=== PATIENT | male | born 1995 | race Two or more races ===

== ENCOUNTER 2024-11-13 08:53 | Emergency (ER) | payer BC, OTHER ==
[~2024-11-13] VITALS: Ht 167.6 cm; Wt 71.7 kg
[2024-11-13] MEDS: FLUORESCEIN SOD OPTH TEST STRIP OP ONE (09:26)
[2024-11-13] MEDS: TETRACAINE HCL 0.5% OPTH(EYE) SOLN 4ML LEFTEYE ONE ×2 (09:26→12:26)
--- NOTE | 2024-11-13 09:34 | ED.PDOC ---
Eye-HPI HPI Comments A 29 YEAR OLD MALE PRESENTS TO THE ED WITH COMPLAINT OF POSSIBLE FOREIGN BODY OF LEFT EYE. PATIENT STATES HE WAS GRINDING METAL YESTERDAY AND THINKS A SMALL PIECE GOT INTO HIS LEFT EYE. PATIENT REPORTS HE IS NOW EXPERIENCING LEFT EYE REDNESS AND IRRITATION AND WOULD LIKE TO HAVE HIS LEFT EYE EVALUATED FOR A POSSIBLE FOREIGN BODY. PATIENT DENIES VISION CHANGES, FEVER, CHILLS, SHORTNESS OF BREATH, CHEST PAIN, ABDOMINAL PAIN, NAUSEA, VOMITING, HEADACHE, OR OTHER COMPLAINTS. NO OTHER SYMPTOMS OR MODIFYING FACTORS AT THIS TIME. PATIENT IS ALERT, ORIENTED X 4, AND HAS STEADY GAIT. Chief Complaint: Eye Problem Reviewed Notes: Nurses Notes, Medications, Allergies Allergies: Coded Allergies: NO KNOWN ALLERGIES (Unverified , 11/13/24) Information Source: Patient Mode of Arrival: Ambulatory Timing: Days Duration: Since onset, Days Prehospital treatment: None Quality: Pain, Red Eye Location: Left Lids: Normal Conjunctiva: Normal Cornea: Left eye, Abrasion, Foreign Body Pupils: Normal EOM: Normal Fundus: Normal Slit lamp exam: Left eye, Corneal abrasion, Foreign Body, Flourescein stain:, Positive Anterior chamber: Normal Mouth: Normal ENT Ear Exam: Normal, Normal, Normal Nose: Normal Sinuses: Normal Oropharynx: Normal Onset: Spontaneous Throat Exposed to: None History of: None Last Tetanus: Unknown Modifying factors: Nothing Associated signs and symptoms: None Past Medical History PAST MEDICAL HISTORY: Denies Surgical History: Denies all surgeries Family History Family History: Reviewed,noncontributory to illness Social History Smoker: Non-Smoker Alcohol: Denies ETOH Use Drugs: Denies Drug Use Lives In: Home Constitutional: denies: chills, diaphoresis, fatigue, fever, malaise, sweats, weakness, others EENTM: reports: eye pain (LEFT EYE PAIN/IRRITATION), eye redness (LEFT EYE REDNESS), others (POSSIBLE FOREIGN BODY OF LEFT EYE); denies: blurred vision, double vision, ear bleeding, ear discharge, ear drainage, ear pain, ear ringing, hearing loss, mouth pain, mouth swelling, nasal discharge, nose bleeding, nose congestion, nose pain, photophobia, tearing, throat pain, throat swelling, voice changes Respiratory: denies: cough, hemoptysis, orthopnea, SOB at rest, shortness of br eath, SOB with excertion, stridor, wheezing, others Cardiovascular: denies: chest pain, dizzy spells, diaphoresis, Dyspnea on exertion, edema, irregular heart beat, left arm pain, lightheadedness, palpitations, PND, syncope, others Gastrointestinal: denies: abdomen distended, abdominal pain, blood streaked bowels, constipated, diarrhea, dysphagia, difficulty swallowing, hematemesis, melena, nausea, poor appetite, poor fluid intake, rectal bleeding, rectal pain, vomiting, others Genitourinary: denies: burning, dysuria, flank pain, frequency, hematuria, incontinence, penile discharge, penile sore, pain, testicle pain, testicle swelling, urgency, others Neurological: denies: dizziness, fainting, headache, left sided numbness, left sided weakness, numbness, paresthesia, pre-existing deficit, right sided numbness, right sided weakness, seizure, speech problems, tingling, tremors, weakness, others Musculoskeletal: denies: back pain, gout, joint pain, joint swelling, muscle pain, muscle stiffness, neck pain, others Integumetry: denies: bruises, change in color, change in hair/nails, dryness, laceration, lesions, lumps, rash, wounds, others Allergic/Immunocompromised: denies: Difficulty Healing, Frequent Infections, Hives, Itching, others Hematologic/Lymphatic: denies: anemia, blood clots, easy bleeding, easy bruising, swollen glands, others Endocrine: denies: excessive hunger, excessive sweating, excessive thirst, excessive urination, flushing, intolerance to cold, intolerance to heat, unexplained weight gain, unexplained weight loss, others Psychiatric: denies: anxiety, bipolar disorder, depression, hopeless, panic disorder, schizophrenia, sleepless, suicidal, others All Other Systems: Reviewed and Negative Was a procedure done? Was a procedure done?: Yes Sedation Sedation?: No Foreign Body Removal Foreign body in: Eye (LEFT EYE) Anesthetic: Other (TETRACAINE) Prep: Prep, Saline, Irrigation Procedure: Identified (+FB OF LEFT EYE, +CORNEAL ABRASION OF LEFT EYE), Removed Informed consent obtained: No Risks/benefits/alt described: Yes EENT DIFF Eye: Conjunctivitis, Allergic, Bacterial, Viral, Corneal Abrasion, Foreign Body-Conjunctiva, Foreign Body-Corneal, Foreign Body-Lid, Hordeolum (stye) Ear: N/A Nose: N/A Mouth: N/A Sore Throat: N/A X-Ray, Labs, Meds, VS Vital Signs Date Time Temp Pulse Resp B/P (MAP) Pulse Ox O2 Delivery O2 Flow Rate FiO2 11/13/24 09:26 97.6 81 16 134/92 (106) 97 97.6 11/13/24 09:26 81 16 97 Room Air 11/13/24 08:53 97.6 81 16 134/92 (106) 97 X-Ray, Labs, Meds, VS Comment EXTERNAL MEDICAL RECORDS REVIEWED: [NONE] INDEPENDENT HISTORIANS: [NONE] SOCIAL DETERMINANTS OF HEALTH: [NONE] LABS ORDERED: NONE REVIEWED AND INTERPRETED RESULTS: NONE IMAGING ORDERED: NONE TREATMENTS ORDERED: PROCEDURES PERFORMED: FOREIGN BODY REMOVAL OF LEFT EYE CRITICAL CARE TIME: NONE I HAVE DISCUSSED THE PATIENT WITH THE ATTENDING PHYSICIAN DR. ALMAZAN AND HE AGREES WITH THE PATIENT'S PLAN OF CARE AND DISPOSITION. BASED ON HISTORY OF PRESENT ILLNESS, AND PHYSICAL EXAM, PATIENT WILL BE DISCHARGED HOME. DISCUSSED PLAN FOR DISCHARGE HOME WITH RX []. MEDICATION WARNINGS GIVEN. SHARED DECISION MAKING: PATIENT INSTRUCTED TO FOLLOW UP WITH PRIMARY CARE PROVIDER IN 1-2 DAYS FOR RE-EVALUATION OF SYMPTOMS. PATIENT VERBALIZES UN DERSTANDING TO RETURN TO ED FOR NEW OR WORSENING SYMPTOMS OR IF FOLLOW UP WITH PCP CANNOT BE OBTAINED. PATIENT FEELS COMFORTABLE GOING HOME AT THIS TIME. ALL QUESTIONS ADDRESSED AT TIME OF DISCHARGE. Reevaluation 1ST: Improved Patient Education/Counseling: Diagnosis, Treatment, Need For Follow Up Family Education/Counseling: Diagnosis, Treatment, Need For Follow Up Departure 1 Departure Disposition: 01 HOME / SELF CARE / HOMELESS Condition: Stable Additional Instructions: FOLLOW-UP WITH PCP IN 1 TO 2 DAYS. TAKE MEDICATIONS PRESCRIBED. RETURN TO ED FOR ANY NEW OR WORSENING SYMPTOMS. Discharged With: Self Critical Care Note Critical Care Time?: No Stability Stability form required: No I personally scribed for DAO GARCIA ([email or web address]) on 11/13/24 at 09:34. Elec tronically submitted by Boom Cho ([email or web address]). I personally scribed for DAO GARCIA ([email or web address]) on 11/13/24 at 09:39. Elect ronically submitted by Boom Cho ([email or web address]). I personally scribed for DAO GARCIA ([email or web address]) on 11/13/24 at 09:49. Electr onically submitted by Boom Cho ([email or web address]). DAO GARCIA Nov 13, 2024 09:34
[2024-11-13] MEDS: FLUORESCEIN SOD OPTH TEST STRIP ONE (12:25)
[2024-11-13] MEDS: BACITRACIN-POLYMYXIN B OPTH(EYE) OINT 3.5GM OP ONE (12:26)
--- NOTE | 2024-11-13 12:28 | ED.PDOC ---
Eye-HPI HPI Comments 29 year old male presents to the ED with a chief complaint of LT eye pain onset yesterday. Patient states he was shaving metal when he felt a small piece inside LT eye. Patient woke up this morning noticed LT eye was teary, with discharge, red and painful. Patient denies any PMH. No other symptoms or modifying factors present at this time. Chief Complaint: Eye Problem Time Seen by MD: 11:47 Reviewed Notes: Medications, Allergies Allergies: Coded Allergies: NO KNOWN ALLERGIES (Unverified , 11/13/24) Information Source: Patient Mode of Arrival: Ambulatory Timing: Days Duration: Since onset Prehospital treatment: None Quality: Pain, Red, FB sensation Eye Location: Left Mouth: Normal ENT Ear Exam: Normal Nose: Normal Sinuses: Normal Oropharynx: Normal Onset: FB Exposure Throat Exposed to: None Eye Context Recent: Welding History of: None Associated signs and symptoms: Discharge, Tearing Past Medical History PAST MEDICAL HISTORY: Denies Surgical History: Denies all surgeries Family History Family History: Reviewed,noncontributory to illness Social History Smoker: Non-Smoker Alcohol: Denies ETOH Use Drugs: Denies Drug Use Lives In: Home Constitutional: denies: chills, diaphoresis, fatigue, fever, malaise, sweats, weakness, others EENTM: reports: eye pain, eye redness, others (foreign body in eye); denies: blurred vision, double vision, ear bleeding, ear discharge, ear drainage, ear pain, ear ringing, hearing loss, mouth pain, mouth swelling, nasal discharge, nose bleeding, nose congestion, nose pain, photophobia, tearing, throat pain, throat swelling, voice changes Respiratory: denies: cough, hemoptysis, orthopnea, SOB at rest, shortness of breath, SOB with excertion, stridor, wheezing, others Cardiovascular: denies: chest pain, dizzy spells, diaphoresis, Dyspnea on exertion, edema, irregular heart beat, left arm pain, lightheadedness, palpitations, PND, syncope, others Gastrointestinal: denies: abdomen distended, abdominal pain, blood streaked bowels, constipated, diarrhea, dysphagia, difficulty swallowing, hematemesis, melena, nausea, poor appetite, poor fluid intake, rectal bleeding, rectal pain, vomiting, others Genitourinary: denies: burning, dysuria, flank pain, frequency, hematuria, incontinence, penile discharge, penile sore, pain, testicle pain, testicle swelling, urgency, others Neurological: denies: dizziness, fainting, headache, left sided numbness, left sided weakness, numbness, paresthesia, pre-existing deficit, right sided numbness, right sided weakness, seizure, speech problems, tingling, tremors, weakness, others Musculoskeletal: denies: back pain, gout, joint pain, joint swelling, muscle pain, muscle stiffness, neck pain, others Integumetry: denies: bruises, change in color, change in hair/nails, dryness, laceration, lesions, lumps, rash, wounds, others Allergic/Immunocompromised: denies: Difficulty Healing, Frequent Infections, Hives, Itching, others Hematologic/Lymphatic: denies: anemia, blood clots, easy bleeding, easy bruising, swollen glands, others Endocrine: denies: excessive hunger, excessive sweating, excessive thirst, excessive urination, flushing, intolerance to cold, intolerance to heat, unexplained weight gain, unexplained weight loss, others Psychiatric: denies: anxiety, bipolar disorder, depression, hopeless, panic disorder, schizophrenia, sleepless, suicidal, others All Other Systems: Reviewed and Negative Physical Exam General Appearance: Mild Distress HEENT: Cornea (L), Normal ENT Inspection, PERRL/EOMI, Other (Abrasion noted the tachycardia on see any foreign body after multiple researchThe upper lid is everted and cleaned the lower lid is cleaned the vision is normal but the patient still feel little something in the eye ) Neck: Full Range of Motion, Non-Tender, Normal, Normal Inspection Respiratory: Chest Non-Tender, Lungs Clear, No Accessory Muscle Use, No Respiratory Distress, Normal Breath Sounds Cardiovascular: No Edema, No JVD, No Murmur, No Gallop, Normal Peripheral Pulses, Regular Rate/Rhythm Breast Exam: Deferred Gastrointestinal: No Organomegaly, Non Tender, No Pulsatile Mass, Normal Bowel Sounds, Soft Genitalia: Deferred Pelvic: Deferred Rectal: Deferred Extremities: No calf tenderness, Normal capillary refill, Normal inspection, Normal range of motion, Non-tender, No pedal edema Neurologic: Alert, consultant dietitian II-XII nml as Tested, No Motor Deficits, Normal Affect, Normal Mood, No Sensory Deficits Cerebellar Function: Normal Reflexes: Normal Skin: Dry, Normal Color, Warm Peripheral Pulses: 1+ carotid (R), 1+ carotid (L) Lymphatic: No Adenopathy Was a procedure done? Was a procedure done?: Yes Sedation Sedation?: No Other Procedure Procedure Possible corneal abrasion Left eye evaluation upper lid everted lower lid cleaned upper lid the small foreign body removed Cornea seems to have a small tiny abrasion but I do not see any foreign body at this time CT of the orbit sent to rule out foreign body intra-ocular negative Patient will be discharged home with a patch and bacitracin ointment If he is not better after a day or two he needs to come back for further evaluation Informed consent obtained: No Risks, benefits, and alternati: No EENT DIFF Eye: Conjunctivitis, Corneal Abrasion, Foreign Body-Conjunctiva, Foreign Body- Corneal, Foreign Body-Intraocular, Foreign Body-Lid Ear: N/A Nose: N/A Mouth: N/A Sore Throat: N/A X-Ray, Labs, Meds, VS Vital Signs Date Time Temp Pulse Resp B/P (MAP) Pulse Ox O2 Delivery O2 Flow Rate FiO2 11/13/24 14:50 98.9 85 16 119/88 (98) 98 98.9 11/13/24 11:54 99.6 87 16 137/86 (103) 97 99.6 11/13/24 09:26 97.6 81 16 134/92 (106) 97 97.6 11/13/24 09:26 81 16 97 Room Air 11/13/24 08:53 97.6 81 16 134/92 (106) 97 [place] [address] Ph: [phone] DIAGNOSTIC IMAGING Diagnostic Imaging Report : [id number] Signed PATIENT: KIKO GREGG CACCT: [id number] UNIT: [id number] : 1995 LOC: ER ROOM / BED: / AGE / SEX: 29 / M ADM STATUS: REG ER SERVICE [id number] ORDERING PHYSICIAN: DONNA ALMAZAN MD PROCEDURE(s): OB1CT - ORBITS WO CONTRAST REASON: Possible foreign body metal intra-ocular ORDER NUMBER(s): [id number], ACCESSION NUMBER(s): [id number] CT ORBITS WITHOUT CONTRAST CLINICAL HISTORY: Possible foreign body metal intra-ocular TECHNIQUE: [Technique] Multiple contiguous axial images of the orbits without contrast were obtained. These images were reconstructed to generate coronal and sagittal reformats. Radiation Dose Information: CT Dose: CTDI volume is 65 mGy. Dose-length product is 8 79 mGy*cm Comparison: None FINDINGS: Evaluation of the orbits is limited without intravenous contrast. The bilateral globes appear within normal limits without preseptal soft tissue swelling or edema. There is no evidence of a radiopaque foreign body. The bilateral optic nerve/sheath complexes are symmetric in size. The extraocular muscles also appear symmetric in size and within normal limits. There is no evidence of an intraconal or extraconal mass. The lacrimal glands appear within normal limits. The orbital solitario are intact. The visualized paranasal sinuses are clear. IMPRESSION: 1. Unremarkable noncontrast CT orbits. There is no evidence of a radiopaque foreign body. HS:Y ATED BY: RAHAT FRASER MD DICTATED DATE/TIME: 11/13/241410 SIGNED BY: RAHAT FRASER MD SIGNED DATE/TIME: 11/13/241410 CC: X-Ray, Labs, Meds, VS Comment Course in the emergency department eventful patient came in complaining of left eye pain with possible foreign body possibly metal The CT of the orbit negative for foreign body Upper eyelid and lower eyelid cleaned Cornea evaluated carefully can not see any foreign body at this time maybe a tin ea little abrasion Patient will be discharged with patch Need to follow up with the his see be and or physician intensivist If any further problem patient came back for follow up Time of 1ST Reevaluation: 12:17 Reevaluation 1ST: Unchanged Patient Education/Counseling: Diagnosis, Treatment, Prognosis Family Education/Counseling: No Family Present Additional Information The following tests were ordered, and results were reviewed by me: CT ORBITS WITHOUT CONTRAST I reviewed and agreed with the following test results read by other providers: CT ORBITS WITHOUT CONTRAST I discussed treatment and results with medical personnel and: patient Departure 1 Departure Time of Disposition: 15:00 Impression: Primary Impression: Foreign body accidentally entering eye and adnexa Additional Impression: Corneal abrasion Qualified Codes: S05.02XA - Injury of conjunctiva and corneal abrasion without foreign body, left eye, initial encounter Disposition: HOME / SELF CARE / HOMELESS Condition: Stable Additional Instructions: Patient treated with the bacitracin ophthalmic FOLLOW-UP WITH PCP IN 1 TO 2 DAYS. TAKE MEDICATIONS PRESCRIBED. RETURN TO ED FOR ANY NEW OR WORSENING SYMPTOMS. Discharged With: Self Critical Care Note Critical Care Time?: No Stability Stability form required: No Heart Score Heart Score: Heart Score Response (Comments) Value History N/A 0 EKG N/A 0 Age <45 0 Risk Factors No known risk factors 0 Troponin N/A 0 Total 0 I personally scribed for DONNA ALMAZAN MD ([email or web address]) on 11/13/24 at 12:28. Electronically submitted by Jocelyne Sexton ([email or web address]). I personally scribed for DONNA ALMAZAN MD ([email or web address]) on 11/13/24 at 14:32. Electronically submitted by Jocelyne Sexton ([email or web address]). DONNA ALMAZAN MD Nov 13, 2024 12:28
--- NOTE | 2024-11-13 14:14 | DVH ---
CT ORBITS WITHOUT CONTRAST CLINICAL HISTORY: Possible foreign body metal intra-ocular TECHNIQUE: [Technique] Multiple contiguous axial images of the orbits without contrast were obtained. These images were fanny nstructed to generate coronal and sagittal reformats. Radiation Dose Information: CT Dose: CTDI volume is 65 mGy. Dose-length product is 8 79 mGy*cm Comparison: None FINDINGS: Evaluation of the orbits is limited without intravenous contrast. The bilateral globes appear within normal limits without preseptal soft tissue swelling or edema. There is no evidence of a radiopaque f oreign body. The bilateral optic nerve/sheath complexes are symmetric in size. The extraocular muscle s also appear symmetric in size and within normal limits. There is no evidence of an intraconal or ex traconal mass. The lacrimal glands appear within normal limits. The orbital solitario are intact. The vi sualized paranasal sinuses are clear. IMPRESSION: 1. Unremarkable noncontrast CT orbits. There is no evidence of a radiopaque foreign body. HS:Y
[2024-11-13 14:50] VITALS: BP 119/88; PULSE 85; RESP 16; TEMP 98.9; O2SAT 98
== END 2024-11-13 15:09 | disposition home or self-care (01) ==
LOC: ER 08:53
DX: T15.90XA Foreign body on external eye, part unspecified, unspecified eye, initial encounter (principal); S05.02XA Injury of conjunctiva and corneal abrasion without foreign body, left eye, initial encounter; W44.8XXA Other foreign body entering into or through a natural orifice, initial encounter; Y93.89 Activity, other specified; Y92.89 Other specified places as the place of occurrence of the external cause; Y99.8 Other external cause status
CPT/HCPCS: 65220; 70480

== ENCOUNTER 2025-07-01 07:17 | Emergency (ER) | payer BC ==
[~2025-07-01] VITALS: Ht 167.6 cm; Wt 73.9 kg
[2025-07-01 08:12] VITALS: BP 117/79; TEMP 98.4; O2SAT 97
--- NOTE | 2025-07-01 08:19 | ED.PDOC ---
SOB-HPI HPI Comments A 30 YEAR OLD MALE PRESENTS TO THE ED WITH COMPLAINT OF MILD COUGH AND SORE THROAT. PATIENT STATES HE WAS RECENTLY EXPOSED TO COVID-19 AND HAS BEEN EXPERIENCING A SORE THROAT, MILD COUGH, CONGESTION, AND BODY ACHES A RESULT FOR THE PAST 2 DAYS. PATIENT IS REQUESTING A COVID-19 TEST HERE IN THE ED TODAY. PATIENT DENIES FEVER, CHILLS, SHORTNESS OF BREATH, CHEST PAIN, ABDOMINAL PAIN, NAUSEA, VOMITING, HEADACHE, OR OTHER COMPLAINTS. NO OTHER SYMPTOMS OR MODIFYING FACTORS AT THIS TIME. PATIENT IS ALERT, ORIENTED X 4, AND HAS STEADY GAIT. Chief Complaint: Cough Time Seen by MD: 07:20 Reviewed notes: Nurses Notes, Medications, Allergies Information Source: Patient Mode of Arrival: Ambulatory Severity: Moderate Timing: Days Duration: Since onset, Days Context: Spontaneous Onset PE Risk Factors: None History of: None Prehospital treatment: None Modifying Factors: Nothing Associated Signs and Symptoms: Cough, Nasal Congestion, Sore Throat If cough with SOB: Productive Past Medical History PAST MEDICAL HISTORY: Denies Surgical History: Denies all surgeries Family History Family History: Reviewed,noncontributory to illness Social History Smoker: Non-Smoker Alcohol: Denies ETOH Use Drugs: Denies Drug Use Lives In: Home Constitutional: denies: chills, diaphoresis, fatigue, fever, malaise, sweats, weakness, others EENTM: reports: nose congestion, throat pain, throat swelling; denies: blurred vision, double vision, ear bleeding, ear discharge, ear drainage, ear pain, ear ringing, eye pain, eye redness, hearing loss, mouth pain, mouth swelling, nasal discharge, nose bleeding, nose pain, photophobia, tearing, voice changes, others Respiratory: reports: cough; denies: hemoptysis, orthopnea, SOB at rest, shortness of breath, SOB with excertion, stridor, wheezing, others Cardiovascular: denies: chest pain, dizzy spells, diaphoresis, Dyspnea on exertion, edema, irregular heart beat, left arm pain, lightheadedness, palpitations, PND, syncope, others Gastrointestinal: denies: abdomen distended, abdominal pain, blood streaked bowels, constipated, diarrhea, dysphagia, difficulty swallowing, hematemesis, melena, nausea, poor appetite, poor fluid intake, rectal bleeding, rectal pain, vomiting, others Genitourinary: denies: burning, dysuria, flank pain, frequency, hematuria, incontinence, penile discharge, penile sore, pain, testicle pain, testicle swelling, urgency, others Neurological: denies: dizziness, fainting, headache, left sided numbness, left sided weakness, numbness, paresthesia, pre-existing deficit, right sided numbness, right sided weakness, seizure, speech problems, tingling, tremors, weakness, others Musculoskeletal: reports: muscle pain; denies: back pain, gout, joint pain, joint swelling, muscle stiffness, neck pain, others Integumetry: denies: bruises, change in color, change in hair/nails, dryness, laceration, lesions, lumps, rash, wounds, others Allergic/Immunocompromised: denies: Difficulty Healing, Frequent Infections, Hives, Itching, others Hematologic/Lymphatic: denies: anemia, blood clots, easy bleeding, easy bru ising, swollen glands, others Endocrine: denies: excessive hunger, excessive sweating, excessive thirst, e xcessive urination, flushing, intolerance to cold, intolerance to heat, unexplained weight gain, unexplained weight loss, others Psychiatric: denies: anxiety, bipolar disorder, depression, hopeless, panic disorder, schizophrenia, sleepless, suicidal, others All Other Systems: Reviewed and Negative Physical Exam General Appearance: No Apparent Distress, Normal HEENT: PERRL/EOMI, Pharyngeal Erythema (TONSILLAR SWELLING, NO EXUDATES. ), TMs Normal Neck: Full Range of Motion, Non-Tender, Normal, Normal Inspection Respiratory: Chest Non-Tender, Lungs Clear, No Accessory Muscle Use, No Respiratory Distress, Normal Breath Sounds Cardiovascular: No Edema, No JVD, No Murmur, No Gallop, Normal Peripheral Pulses, Regular Rate/Rhythm Breast Exam: Deferred Gastrointestinal: No Organomegaly, Non Tender, No Pulsatile Mass, Normal Bowel Sounds, Soft Genitalia: Deferred Pelvic: Deferred Rectal: Deferred Extremities: No calf tenderness, Normal capillary refill, Normal inspection, Normal range of motion, Non-tender, No pedal edema Musculoskeletal : Apperance: Normal Neurologic: Alert, 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 Was a procedure done?: No Differential Dx Differential Diagnosis: Bronchitis, Sinusitis, Allergic Rhinitis, Otitis Media, Pharyngitis, URI Comments COVID-19 X-Ray, Labs, Meds, VS Vital Signs Date Time Temp Pulse Resp B/P (MAP) Pulse Ox O2 Delivery O2 Flow Rate FiO2 07/01/25 08:24 83 16 Room Air 0 07/01/25 08:12 98.4 83 16 117/79 (92) 97 98.4 07/01/25 07:18 98.6 87 20 127/83 97 98.6 Lab Test 07/01/25 08:30 Range/Units SARS-CoV-2 Antigen (Rapid) Positive *A NEGATIVE Group A Streptococcus Rapid Negative X-Ray, Labs, Meds, VS Comment EXTERNAL MEDICAL RECORDS REVIEWED: [NONE] INDEPENDENT HISTORIANS: [NONE] SOCIAL DETERMINANTS OF HEALTH: [NONE] LABS ORDERED: STREP A RAPID, COVID-19 ANTIGEN REVIEWED AND INTERPRETED RESULTS: COVID-19 POSITIVE IMAGING ORDERED: NONE TREATMENTS ORDERED: NONE PROCEDURES PERFORMED: NONE CRITICAL CARE TIME: NONE I HAVE DISCUSSED THE PATIENT WITH THE ATTENDING PHYSICIAN, DR. AC HE AGREES WITH THE PATIENT'S PLAN OF CARE AND DISPOSITION. BASED ON HISTORY OF PRESENT ILLNESS, AND PHYSICAL EXAM, PATIENT WILL BE DISCHARGED HOME. DISCUSSED PLAN FOR DISCHARGE HOME WITH RX [AZITHROMYCIN AND TYLENOL]. MEDICATION WARNINGS GIVEN. SHARED DECISION MAKING: DISCUSSED WITH PATIENT THAT THEIR WORKUP WAS NORMAL. PATIENT INSTRUCTED TO FOLLOW UP WITH PRIMARY CARE PROVIDER IN 1-2 DAYS FOR RE- EVALUATION OF SYMPTOMS. PATIENT VERBALIZES UNDERSTANDING TO RETURN TO ED FOR NEW OR WORSENING SYMPTOMS OR IF FOLLOW UP WITH PCP CANNOT BE OBTAINED. PATIENT FEELS COMFORTABLE GOING HOME AT THIS TIME. ALL QUESTIONS ADDRESSED AT TIME OF DISCHARGE. Time of 1ST Reevaluation: 10:00 Reevaluation 1ST: Improved Patient Education/Counseling: Diagnosis, Treatment, Need For Follow Up Family Education/Counseling: Diagnosis, Treatment, Need For Follow Up Medical Screening: No EMC Exist At This Time SEPSIS Sepsis Screen Date sepsis recognized/suspect: Jul 01, 2025 Time Sepsis recognized/suspect: 07 Recent Procedure: No On Antibiotic Therapy: No Respiratory Rate >20: No Heart Rate >90: Yes Temp<36 C (96.8 F) or >38.3 C: No SBP <90 or MAP <65 mmHG: No New Acute Mental Status Change: No Is the patient on CPAP, BIPAP,: No Vital Signs Date Time Temp Pulse Resp B/P (MAP) Pulse Ox O2 Delivery O2 Flow Rate FiO2 07/01/25 08:24 83 16 Room Air 0 07/01/25 08:12 98.4 83 16 117/79 (92) 97 98.4 07/01/25 07:18 98.6 87 20 127/83 97 98.6 Departure 1 Departure Time of Disposition: 10:00 Impression: Primary Impression: SARS-CoV-2 positive Additional Impression: Acute tonsillitis Qualified Codes: J03.90 - Acute tonsillitis, unspecified Disposition: HOME / SELF CARE / HOMELESS Condition: Stable Additional Instructions: FOLLOW-UP WITH PCP IN 1 TO 2 DAYS. TAKE MEDICATIONS PRESCRIBED. RETURN TO ED FOR ANY NEW OR WORSENING SYMPTOMS. e-Prescriptions Acetaminophen (Tylenol Extra Strength Fo) 500 Mg Tab 1000 MG PO BID, #30 TAB Prov: DAO GARCIA 07/01/25 Azithromycin (Azithromycin) 500 Mg Tab 1 TAB PO DAILY, #5 TAB Prov: DAO GARCIA 07/01/25 Discharged With: Self Critical Care Note Critical Care Time?: No Stability Stability form required: No Heart Score Heart Score: Heart Score Response (Comments) Value History N/A 0 EKG N/A 0 Age N/A 0 Risk Factors N/A 0 Troponin N/A 0 Total 0 I personally scribed for DAO GARCIA ([email or web address]) on 07/01/25 at 08:19. Elec tronically submitted by Boom Cho ([email or web address]). I personally scribed for DAO GARCIA ([email or web address]) on 07/01/25 at 09:52. Electr onically submitted by Boom Cho ([email or web address]). DAO GARCIA Jul 01, 2025 08:19
[2025-07-01 08:24] VITALS: PULSE 83; RESP 16
[2025-07-01 09:29] LABS: COVID19 ANTIGEN SOFIA FIA POSITIVE (NEGATIVE)
[2025-07-01 09:45] LABS: Rapid Strep A Screen-Throat Negative
[2025-07-01] MEDS ORDERED: ACET-1304 PO (10:00)
[2025-07-01] MEDS ORDERED: AZIT500T66 PO (10:00)
== END 2025-07-01 10:09 | disposition home or self-care (01) ==
LOC: ER 07:17
DX: U07.1 COVID-19 (principal); J03.90 Acute tonsillitis, unspecified
CPT/HCPCS: 36415; 87070; 87426; 87880